=== PATIENT | male | born 1995 | race Two or more races ===

== ENCOUNTER 2018-03-27 09:20 | Emergency (ER) | payer SELFPAY, OTHER ==
[2018-03-27] MEDS: cefTRIAXone IM 250 MG VIAL IM (10:21)
[2018-03-27] MEDS: AZITHROMYCIN 250 MG TABLET. PO (10:22)
== END 2018-03-27 10:59 | disposition home or self-care (01) ==
LOC: ER 09:20
DX: A64 Unspecified sexually transmitted disease (principal)
CPT/HCPCS: 87491; 87591; 96372; 99284; J0696; Q0144

== ENCOUNTER 2018-04-27 11:35 | Emergency (ER) | payer SELFPAY ==
[2018-04-27] MEDS: cefTRIAXone IM 250 MG VIAL IM (12:15)
[2018-04-27] MEDS: AZITHROMYCIN 250 MG TABLET. PO (12:15)
== END 2018-04-27 12:58 | disposition home or self-care (01) ==
LOC: ER 12:58
DX: Z20.2 Contact with and (suspected) exposure to infections with a predominantly sexual mode of transmission (principal)
CPT/HCPCS: 87491; 87591; 96372; 99284; J0696; Q0144

== ENCOUNTER 2018-06-29 15:43 | Emergency (ER) | payer SELFPAY ==
[~2018-06-29] VITALS: Ht 190.5 cm; Wt 111.1 kg
[~2018-06-29 15:43] MED LIST: IBUPROFEN PO; NAPR-514 PO; OXYC-323 PO
[2018-06-29 15:45] VITALS: BP 156/84
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
[2018-06-29 16:01] LABS: BILIRUBIN,URINE NEGATIVE (NEG); CLARITY,URINE CLEAR; COLOR,URINE YELLOW; NITRITE,URINE NEGATIVE (NEG); PH,URINE 6.5; PROTEIN,URINE NEGATIVE (NEG-TRACE); UROBILINOGEN,URINE 0.2 mg/dL (0.2 mg/dL)
[2018-06-29] MEDS ORDERED: metroNIDAZOLE 500 MG TABLET PO ONE (16:15)
[2018-06-29] MEDS ORDERED: AZITHROMYCIN 250 MG TABLET. PO ONE (16:15)
[2018-06-29] MEDS ORDERED: cefTRIAXone IM 250 MG VIAL IM ONE (16:15)
[2018-06-29 16:50] LABS: BACTERIA,URINE 0 /HPF (0-FEW); RBC,URINE 0 /HPF (0-2); WBC,URINE TNTC /HPF (0-4)
== END 2018-06-29 16:23 | disposition home or self-care (01) ==
LOC: ER 15:59
DX: Z20.2 Contact with and (suspected) exposure to infections with a predominantly sexual mode of transmission (principal)
CPT/HCPCS: 81001; 87086; 87491; 87591; 96372; 99284; J0696; Q0144

== ENCOUNTER 2018-11-12 03:34 | Emergency (ER) | payer SELFPAY ==
[~2018-11-12] VITALS: Ht 190.5 cm; Wt 115.2 kg
[~2018-11-12 03:34] MED LIST changes: -OXYC-323 PO; +OXYC1TAB15 PO
[2018-11-12 03:35] VITALS: BP 173/87
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
[2018-11-12 04:06] LABS: BILIRUBIN,URINE NEGATIVE (NEG); CLARITY,URINE CLEAR; COLOR,URINE YELLOW; NITRITE,URINE NEGATIVE (NEG); PH,URINE 5.5; PROTEIN,URINE NEGATIVE (NEG-TRACE); UROBILINOGEN,URINE 0.2 mg/dL (0.2 mg/dL)
[2018-11-12 04:15] LABS: BACTERIA,URINE 0 /HPF (0-FEW); RBC,URINE 0 /HPF (0-2); WBC,URINE TNTC /HPF (0-4)
[2018-11-12 04:16] LABS: SQUAMOUS EPITHELIAL CELL,UR OCC /LPF
[2018-11-12] MEDS ORDERED: DOXY100T PO (04:32)
[2018-11-12] MEDS ORDERED: ONDANSETRON PF 4 MG/2 ML VIAL. IV ONE (04:45)
[2018-11-12] MEDS ORDERED: AZITHROMYCIN 250 MG TABLET. PO ONE (04:45)
[2018-11-12] MEDS ORDERED: cefTRIAXone IM 250 MG VIAL IM ONE (04:45)
== END 2018-11-12 04:15 | disposition home or self-care (01) ==
LOC: ER 03:34
DX: N39.0 Urinary tract infection, site not specified (principal)
CPT/HCPCS: 81001; 87086; 87491; 87591; 96372; 96374; 99283; J0696; J2405; Q0144

== ENCOUNTER 2018-12-13 23:27 | Emergency (ER) | payer SELFPAY ==
[~2018-12-13] VITALS: Ht 190.5 cm; Wt 113.4 kg
[~2018-12-13 23:27] MED LIST changes: +DOXY100T PO
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
[2018-12-14] MEDS ORDERED: LIDOCAINE 1% Multi-Dose 20 ML VIAL. INJ ONE
[2018-12-14] MEDS ORDERED: ceFAZolin IM 1 GM VIAL IM ONE
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
[2018-12-14 01:02] VITALS: BP 151/75
[2018-12-14] MEDS ORDERED: CEPH500T PO (01:17)
[2018-12-14] MEDS ORDERED: MELO7.5T29 PO (01:17)
== END 2018-12-14 01:24 | disposition home or self-care (01) ==
LOC: ER 23:27
DX: S01.21XA Laceration without foreign body of nose, initial encounter (principal); S01.81XA Laceration without foreign body of other part of head, initial encounter; Y08.89XA Assault by other specified means, initial encounter; Y93.89 Activity, other specified; Y92.89 Other specified places as the place of occurrence of the external cause; Y99.8 Other external cause status
CPT/HCPCS: 12013; 70450; 70486; 96372; 99284; J0690